=== PATIENT | female | born 1960 | race African-American/Black ===

== ENCOUNTER 2017-09-30 08:18 | Day surgery (SDC) | payer OTHER ==
[2017-09-29 14:02] VITALS: BMI 25.8
[2017-09-30] MEDS ORDERED: LIDOCAINE HCL 1%, 10 MG/ML (20ML VIAL) ONE ×2 (10:16→11:51)
[2017-09-30] MEDS ORDERED: BUPIVACAINE HCL/PF 0.25% (2.5MG/ML) 10 ML VIAL ONE (10:16)
[2017-09-30] MEDS ORDERED: DEXAMETHASONE SOD PHOSPHATE 4 MG/1 ML VIAL ONE (10:17)
--- NOTE | 2017-09-30 11:08 | HP ---
HISTORY OF PRESENT ILLNESS: This is a 57 year old female with no significant PMHx who is here today for left bunionectomy and hammer toe repair. The patient has medical clearance in the chart from her pcp, Dr. Jose Guadalupe Arroyo. The patient denies any symptoms at this time including, but not limited to, chest pain, palpitations, headache, dizziness, syncope, urinary symptoms, lower extremity swelling, nausea, vomiting , diarrhea. The patient does report taking ASA 81mg po on 09/28 (Dr. Pedro is aware) PCP: Jose Guadalupe Arroyo Recent travel: denies Family History: denies Social History: denies Smoking: denies Alcohol: denies Drugs: denies REVIEW OF SYSTEMS CONSTITUTIONAL: Absent: fever, chills, diaphoresis, generalized weakness, malaise, loss of appetite, weight change HEENT: Absent: rhinorrhea, nasal congestion, throat pain, throat swelling, difficulty swallowing, mouth swelling, ear pain, eye pain, visual changes CARDIOVASCULAR: Absent: chest pain, syncope, palpitations, irregular heart rate, lightheadedness , peripheral edema RESPIRATORY: Absent: cough, shortness of breath, dyspnea with exertion, orthopnea, wheezing, stridor, hemoptysis GASTROINTESTINAL: Absent: abdominal pain, abdominal distension, nausea, vomiting, diarrhea, constipation, melena, hematochezia GENITOURINARY: Absent: dysuria, frequency, urgency, hesitancy, hematuria, flank pain, genital pain MUSCULOSKELETAL: Absent: myalgia, arthralgia, joint swelling, back pain, neck pain SKIN: Absent: rash, itching, pallor HEMATOLOGIC/IMMUNOLOGIC: Absent: easy bleeding, easy bruising, lymphadenopathy, frequent infections ENDOCRINE: Absent: unexplained weight gain, unexplained weight loss, heat intolerance, cold intolerance NEUROLOGIC: Absent: headache, focal weakness or paresthesias, dizziness, unsteady gait, seizure, mental status changes, bladder or bowel incontinence PSYCHIATRIC: Absent: anxiety, depression, suicidal or homicidal ideation, hallucinations. PHYSICAL EXAMINATION: Vital Signs Temperature 98.2 F 09/30/17 10:26 Pulse Rate 62 09/30/17 10:26 Respiratory Rate 16 09/30/17 10:26 Blood Pressure 134/73 09/30/17 10:26 O2 Sat by Pulse Oximetry (%) 99 09/30/17 10:26 GENERAL: Awake, alert, and fully oriented, in no acute distress. HEAD: Normal with no signs of trauma. EYES: Pupils equal, round and reactive to light, extraocular movements intact, sclera anicteric, conjunctiva clear. No lid lag. EARS, NOSE, THROAT: Ears normal, nares patent, oropharynx clear without exudates. Moist mucous membranes. NECK: Normal range of motion, supple without lymphadenopathy, or masses. LUNGS: Breath sounds equal, clear to auscultation bilaterally. No wheezes, and no crackles. No accessory muscle use. HEART: Regular rate and rhythm, normal S1 and S2 ABDOMEN: Soft, nontender, not distended, normoactive bowel sounds, no guarding, no rebound, no masses. No hepatomegaly or splenomegaly. MUSCULOSKELETAL: Normal range of motion at all joints. No bony deformities or tenderness. No CVA tenderness. UPPER EXTREMITIES: 2+ pulses, warm, well-perfused. No cyanosis. No clubbing. No peripheral edema. LOWER EXTREMITIES: 2+ pulses, warm, well-perfused. No calf tenderness. No peripheral edema. NEUROLOGICAL: Cranial nerves II-XII intact. Normal speech. Gait not observed PSYCHIATRIC: Cooperative. Good eye contact. Appropriate mood and affect. SKIN: Warm, dry, normal turgor, no rashes or lesions noted, normal capillary refill. Assessment: This is a 57 year old female with no significant PMHx who is here today for left bunionectomy and hammer toe repair. Plan: 1) Bunionectomy and hammer toe repair - Today with podiatry - Medical clearance in the chart from pcp Dr. Jose Guadalupe Arroyo - Chest x-ray, EKG, labs reviewed - Patient reports taking ASA 81mg on 09/28. Spoke to Dr. Pedro who is aware the patient took ASA two days ago - Post op management per podiatry 2) Hypercholesterolemia, hyperlipidemia - Consider starting statin, LDL 199, f/u outpatient pcp to discuss Problem List - Problem (1) Hammer toe of left foot Code(s): M20.42 - OTHER HAMMER TOE(S) (ACQUIRED), LEFT FOOT (2) Hyperlipidemia Code(s): E78.5 - HYPERLIPIDEMIA, UNSPECIFIED (3) Hypercholesteremia Code(s): E78.00 - PURE HYPERCHOLESTEROLEMIA, UNSPECIFIED (4) Bunion of great toe of left foot Code(s): M21.612 - BUNION OF LEFT FOOT Visit type - Case Type Case Type: Scheduled - Emergency Emergency Visit: No - New patient This patient is new to me today: Yes Date on this admission: 09/30/17 - Critical Care Critical Care patient: No
[2017-09-30] MEDS ORDERED: PROPOFOL 20 ML ONE (11:20)
[2017-09-30] MEDS ORDERED: MIDAZOLAM HCL 2 MG/2 ML SINGLE DOSE VIAL ONE (11:21)
[2017-09-30] MEDS ORDERED: ceFAZolin SODIUM 1 GM VIAL ONE (11:25)
[2017-09-30] MEDS ORDERED: BUPIVACAINE HCL/PF (5 MG/ML) 30 ML VIAL IJ ONE (11:35)
[2017-09-30] MEDS ORDERED: LIDOCAINE HCL 1%, 10 MG/ML (20ML VIAL) PNB ONE (11:35)
[2017-09-30] MEDS ORDERED: ceFAZolin SODIUM 1 GM VIAL IVPB ONE (11:40)
[2017-09-30] MEDS ORDERED: KETOROLAC TROMETHAMINE 30 MG/1 ML VIAL ONE (12:44)
--- NOTE | 2017-09-30 12:56 | OP ---
Operative Note - Note: Operative Date: 09/30/17 Pre-Operative Diagnosis: Bunion and hammer toes 2,3,5 left Operation: Osorio bunionectomy. Arthropalsty 2,35 PIPJ. Lateral middle brent- phalagectomy 5th toe. Findings: hypertrophic bone and soft tissue. Post-Operative Diagnosis: Same as Pre-op Surgeon: Fredis Pedro Goodwill Ambassador: Brad Watters Anesthesia: Local, MAC Specimens Removed: bone and soft tissue Estimated Blood Loss (mls): 10
[2017-09-30] MEDS ORDERED: oxyCODONE HCL 5 MG TABLET PO PRN (13:07)
[2017-09-30] MEDS ORDERED: ONDANSETRON 4 MG/2 ML VIAL IVPUSH PRN (13:07)
[2017-09-30] MEDS ORDERED: ACETAMINOPHEN 325 MG TABLET (FP) PO PRN (13:07)
[2017-09-30] MEDS ORDERED: LACTATED RINGERS SOLUTION 1,000 ML IV SCH (13:15)
[2017-09-30 14:37] VITALS: BP 137/70; PULSE 59; TEMP 98.1
--- NOTE | 2017-10-01 18:05 | OP ---
DATE OF OPERATION: 09/30/2017 PREOPERATIVE DIAGNOSES: 1. Hallux abductovalgus, left foot. 2. Second digit hammertoe, left foot. 3. Third digit hammertoe, left foot. 4. Fifth digit hammertoe, left foot. POSTOPERATIVE DIAGNOSES: 1. Hallux abductovalgus, left foot. 2. Second digit hammertoe, left foot. 3. Third digit hammertoe, left foot. 4. Fifth digit hammertoe, left foot. OPERATION: 1. Banerjee bunionectomy, left foot. 2. Second digit distal interphalangeal joint arthroplasty, left foot. 3. Third digit distal interphalangeal joint arthroplasty, left foot. 4. Fifth digit distal interphalangeal joint arthroplasty, left foot. ANESTHESIA: Local with IV sedation. SURGEON: Fredis Pedro DPM SECOND SURGEON: Brad Watters DPM LUMBER CHAIN OFFBEARER: Dr. Ash Mills, PGY-3 HEMOSTASIS: Ankle tourniquet set at 250 mmHg. ESTIMATED BLOOD LOSS: Less than 5 mL. MATERIALS: Vicryl and nylon suture. PATHOLOGY: Left foot bone, soft tissue. OPERATIVE PROCEDURE: The patient was brought to the operating room and placed on the operating table in supine position. A pneumatic ankle tourniquet was then placed on the patient's left ankle. Following IV sedation, local anesthesia was obtained utilizing 18 mL of a 1:1 mixture of 1% lidocaine plain and 0.25% Marcaine plain. The left foot was then scrubbed, prepped, and draped in the usual aseptic manner. An Esmarch bandage was then utilized to exsanguinate the patient's left foot, and the tourniquet was inflated. Attention was then directed to the dorsal aspect of the 1st metatarsal head of the left foot where a 3-cm linear longitudinal incision was made medial and parallel to the tendon of the extensor hallucis longus. The incision was then deepened through subcutaneous tissue using sharp and blunt dissection. Care was taken to identify and retract all vital neurovascular structures. At this time, a linear capsulotomy was performed over the dorsal aspect of the 1st metatarsophalangeal joint. The periosteal and capsular structures were then carefully dissected free and reflected medial and laterally, thus exposing the head of the 1st metatarsal. Utilizing a sagittal saw, the medial prominence was resected and passed from the operative field. Next, a McGlamry elevator was inserted into the 1st metatarsal head, and all plantar adhesions were freed. Attention was then directed to the 1st interspace where sharp and blunt dissection was utilized to visualize the conjoined adductor tendon which was then transected. The remaining medial bone shelf as well as rough edges of bone were then resected and smoothed using power equipment, and the bony deformity was noted to be thus improved. The operative site was then flushed with copious amounts of sterile saline and the periosteum and capsular structures were then reapproximated using 2-0 Vicryl. Redundant capsular tissue was then resected as needed, and subcutaneous tissue was closed with 3-0 Vicryl. Next, a running subcuticular stitch was used to coapt the skin edges with 5-0 Vicryl. Next, benzoin with Steri-Strips was placed across the skin incision site. Attention was then directed to the left 2nd digit where a 2-cm linear longitudinal incision was made over the dorsal aspect of the proximal interphalangeal joint of the digit. The incision was then deepened through subcutaneous tissues with care to retract all neurovascular structures. A transverse tenotomy and capsulotomy was performed to the proximal interphalangeal joint of the 2nd digit of the left foot. The head of the proximal phalanx was then freed of its soft tissue attachments. A double-action bone cutter was then used to resect the head of the proximal phalanx which was then passed from the operating room table. The phalanx was then smoothed of all rough edges with a bone rasp. The wound was then flushed with copious amounts of sterile saline, and the extensor tendon was reapproximated with 4-0 Vicryl. The skin was then closed with 5-0 nylon. Attention was then directed to the left foot 3rd digit where all steps were re-created and produced to correct the hammertoe deformity of the left foot 3rd digit. Attention was then directed to the left foot 5th digit where 2 converging 2-cm semi-elliptical longitudinal incisions were made over the dorsal aspect of the proximal interphalangeal joint of the digit running distal medial to proximal lateral. The incision was then deepened through subcutaneous tissue with care to retract all neurovascular structures. The ellipse was then removed with sharp and blunt dissection. All bleeders were cauterized and ligated. A transverse tenotomy and capsulotomy was performed to the proximal interphalangeal joint of the 5 digit. The head of the proximal phalanx was then freed of its soft tissue attachments. Sagittal bone saw was then used to resect the head of the proximal phalanx and was then passed from the operating room table. The phalanx was then smoothed of all rough edges of the bone with a bone rasp. The wound was then flushed with copious amounts of sterile saline, and the extensor tendon was reapproximated with 4-0 Vicryl. The skin was then closed using 5-0 nylon. A total mixture of 8 mL of a 0.25% Marcaine plain with 2 mL of dexamethasone was given upon completion of the procedure, which was infiltrated around the surgical sites. All incisions were then dressed with Betadine-soaked Adaptic and covered with sterile compressive dressing, such as 4 x 4's and Jessie, and the foot was wrapped with an Young wrap. The patient tolerated the procedure well and was transferred to the recovery room with all vital signs stable and the vascular status intact to the left foot. Following postoperative monitoring, the patient will be discharged and given instructions and prescriptions which were discussed prior to the surgery. Brad Watters DPM dictating for BRANDEN Byrne DPM [id number]
--- NOTE | 2017-10-05 17:18 | PATH ---
Surgical Pathology Report Patient Name: NATALIE ROSE [facility]. Rec. #: [id number] /Age/Gender: 1960 (Age: 57) / F Account: [id number] Location: [facility] SURGICAL Taken: 09/30/2017 Received: 09/30/2017 Reported: 10/05/2017 Physicians: Brad Watters DPM Specimen(s) Received BONE FROM LEFT FOOT, BUNIONECTOMY, AND HAMMER TOES Clinical History Left foot buninectomy, hammer toe Final Diagnosis BONE, FOOT, LEFT, BUNIONECTOMY: BONE WITH DEGENERATIVE CHANGES. Electronically Signed Rosalinda Hardy M.D. Gross Description Received in formalin, labeled "bone from left foot" is multiple pieces of bone and soft tissue measuring 2 x 2 x 0.6 cm. in aggregate. The specimens are submitted in toto in one cassette after decalcification. KULWANT/10/01/2017 rafi/10/01/2017
== END 2017-09-30 15:00 | disposition home or self-care (01) ==
LOC: JASU-SURG 08:18
PROVIDERS: ATTEND Podiatrist Foot Surgery
PROC: 0QBR0ZZ Excision of Left Toe Phalanx, Open Approach (ICD-10-PCS; principal; 2017-09-30 08:30)
PROC: 0SRQ0JZ Replacement of Left Toe Phalangeal Joint with Synthetic Substitute, Open Approach (ICD-10-PCS; 2017-09-30 08:30)
DX: M20.12 Hallux valgus (acquired), left foot (principal); M20.42 Other hammer toe(s) (acquired), left foot
CPT/HCPCS: 73630-TC-LT; 88304-TC; 88311-TC; 94760